=== PATIENT | female | born 2000 | race Caucasian/White ===

== ENCOUNTER 2018-06-20 17:26 | Emergency (ER) | payer BC ==
[~2018-06-20] VITALS: Ht 172.7 cm; Wt 100.0 kg
[2018-06-20 17:50] VITALS: BP 137/87
[2018-06-20] MEDS ORDERED: HYDROcodone/acetaminophen 5mg/325mg tablet PO ONE (17:55)
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
[2018-06-20] MEDS ORDERED: TETanus/Pertussis (Acell)/Diphther VAC/PF (Tdap-Adult) 0.5ml syringe IM ONE (18:20)
[2018-06-20] MEDS ORDERED: AMOX-419 PO (20:29)
== END 2018-06-20 21:22 | disposition home or self-care (01) ==
LOC: ER 17:27
DX: S52.514A Nondisplaced fracture of right radial styloid process, initial encounter for closed fracture (principal); S91.031A Puncture wound without foreign body, right ankle, initial encounter; S81.831A Puncture wound without foreign body, right lower leg, initial encounter; S00.01XA Abrasion of scalp, initial encounter; M25.532 Pain in left wrist; W54.0XXA Bitten by dog, initial encounter; Z60.2 Problems related to living alone; Y93.89 Activity, other specified; Y92.89 Other specified places as the place of occurrence of the external cause; Y99.8 Other external cause status; Y08.89XA Assault by other specified means, initial encounter
CPT/HCPCS: 29125; 73110; 90471; 90715; 99284